=== PATIENT | male | born 1935 | race Caucasian/White ===

== ENCOUNTER 2021-07-16 21:14 | Observation (INO) ==
[2021-07-16 22:24] LABS: ABS Basophils 0.1 10^3/ul (0-0.2); ABS Eosinophils 0.1 10^3/ul (0-0.6); ABS Lymphocytes 1.2 10^3/ul (1.0-4.8); ABS Monocytes 0.7 10^3/ul (0-0.8); ABS Neutrophils 7.1 10^3/ul (1.5-7.7); Eosinophil % 1.3 %; Hematocrit 23 % (42-52); Hemoglobin 7.9 g/dL (14.0-18.0); Lymphocyte % 12.9 %; Mean Corpuscular HGB Conc 34 g/dL (31-36); Mean Corpuscular Hemoglobin 28 pg (27-31); Mean Corpuscular Volume 84 fL (80-94); Mean Platelet Volume 6.4 fL (7.4-10.4); Platelet Count 340 10^3/uL (150-450); Red Blood Count 2.79 10^6 /uL (4.18-5.48); Red Cell Distribution Width 17 % (10-15); White Blood Count 9.1 10^3/uL (3.5-10.8)
[2021-07-16 23:18] LABS: ALT 6 U/L (7-52); AST 8 U/L (13-39); Albumin 3.6 g/dL (3.2-5.2); Albumin/Globulin Ratio 1.4 (1-3); Alkaline Phosphatase 54 U/L (35-149); Anion Gap 9 mmol/L (2-11); Blood Urea Nitrogen 25 mg/dL (6-24); CO2 Carbon Dioxide 23 mmol/L (22-32); Calcium 9.6 mg/dL (8.6-10.3); Chloride 100 mmol/L (101-111); Globulin 2.5 g/dL (2-4); Glucose 219 mg/dL (70-100); Potassium 4.7 mmol/L (3.5-5.0); Sodium 132 mmol/L (135-145); Total Protein 6.1 g/dL (6.4-8.9); eGFR CKD-EPI 62.5 (>60)
[2021-07-16 23:54] LABS: Urine Appearance Cloudy; Urine Bilirubin Negative (Negative); Urine Blood Negative (Negative); Urine Color Yellow; Urine Glucose 2+(150 mg/dL) (Negative); Urine Ketones Trace (Negative); Urine Nitrite Negative (Negative); Urine Protein 2+(100 mg/dL) (Negative); Urine Specific Gravity 1.027 (1.002-1.030); Urine Urobilinogen Negative (Negative)
[2021-07-17 00:02] LABS: Urine Bacteria Absent (Absent); Urine Red Blood Cell 3+(>10/hpf) (Absent); Urine White Blood Cell 3+(>20/hpf) (Absent)
[2021-07-17] MEDS ORDERED: Dextrose 50% Syringe 50 ml 25 GM/50 ML SYRINGE IV PUSH PRN (02:11)
[2021-07-17] MEDS ORDERED: Albuterol/Ipratropium NEB.SOL (2.5/0.5 MG) 3 ML NEB.SOLN INH PRN (02:17)
[2021-07-17] MEDS ORDERED: Albuterol HFA INHALER 8 gm MDI INH PRN (02:17)
[2021-07-17] MEDS ORDERED: Iodixanol (CONTRAST) 320 MG/ML 100 ML SDV IV ONE (02:24)
[2021-07-17 03:05] LABS: LDH 143 U/L (140-271); Magnesium 1.4 mg/dL (1.9-2.7); Total Iron Binding Capacity 283 mcg/dL (250-450); Transferrin 202 mg/dL (203-362)
[2021-07-17 03:06] LABS: % Iron Saturation 7 % (15-55); Iron < 20 ug/dL (50-212); Unsaturated Iron Binding 263 ug/dL
[2021-07-17 03:28] LABS: Ferritin 45.4 ng/mL (24-336)
[2021-07-17 03:31] LABS: Folate 5.11 ng/mL (5.90-24.80)
[2021-07-17 03:32] LABS: Vitamin B12 298 pg/mL (180-914)
[2021-07-17 03:34] LABS: TSH Ultra Thyroid Stim Horm 0.45 mcIU/mL (0.34-5.60)
[2021-07-17] MEDS ORDERED: Magnesium Sulfate 2 gm BAG 2 GM/50 ML BAG IVPB ONE ×2 (03:41→09:30)
[2021-07-17 06:05] LABS: ABS Basophils 0.1 10^3/ul (0-0.2); ABS Eosinophils 0.3 10^3/ul (0-0.6); ABS Lymphocytes 1.3 10^3/ul (1.0-4.8); ABS Monocytes 0.7 10^3/ul (0-0.8); ABS Neutrophils 6.3 10^3/ul (1.5-7.7); Eosinophil % 3.3 %; Hematocrit 22 % (42-52); Hemoglobin 7.4 g/dL (14.0-18.0); Lymphocyte % 15.5 %; Mean Corpuscular HGB Conc 34 g/dL (31-36); Mean Corpuscular Hemoglobin 28 pg (27-31); Mean Corpuscular Volume 84 fL (80-94); Mean Platelet Volume 6.3 fL (7.4-10.4); Platelet Count 312 10^3/uL (150-450); Red Blood Count 2.62 10^6 /uL (4.18-5.48); Red Cell Distribution Width 17 % (10-15); White Blood Count 8.7 10^3/uL (3.5-10.8)
[2021-07-17 06:20] LABS: INR 1.1 (0.86-1.15)
[2021-07-17 06:47] LABS: Calcium 6.9 mg/dL (8.6-10.3); Potassium 3.2 mmol/L (3.5-5.0); eGFR CKD-EPI 86.2 (>60)
[2021-07-17] MEDS ORDERED: Potassium Chlor 20 meq TAB.ER PO ONE (08:12)
[2021-07-17 08:31] LABS: Magnesium 1.5 mg/dL (1.9-2.7)
[2021-07-17] MEDS ORDERED: NF:Fluticasone/Vilanterol MDI(NF) 100/25 MDI INH SCH (09:00)
[2021-07-17] MEDS: Insulin GLARGINE 100 un/ml 10 ml VIAL SUBCUT SCH (09:48)
[2021-07-17] MEDS: KCL 20 MEQ/100 ML IVPREMIX 20 MEQ/100 ML BAG IV SCH ×2 (13:16→16:04)
[2021-07-17] MEDS ORDERED: KCL 20 MEQ/100 ML IVPREMIX 20 MEQ/100 ML BAG IV ONE (16:00)
[2021-07-17 16:33] LABS: Hematocrit 31 % (42-52); Hemoglobin 10.3 g/dL (14.0-18.0)
[2021-07-17] MEDS: Mometasone/Formoter 100/5 MDI INH SCH (19:26)
[2021-07-17] MEDS: Iron Sucrose 200 MG in NS 0.9% 100 ml BAG 100 ML IVPB SCH (19:47)
[2021-07-18] MEDS ORDERED: Haloperidol 5 mg/ml SDV IV/IM 5 MG/ML AMP IM PRN (05:14)
[2021-07-18 05:25] LABS: ABS Basophils 0.1 10^3/ul (0-0.2); ABS Eosinophils 0.2 10^3/ul (0-0.6); ABS Monocytes 0.7 10^3/ul (0-0.8); Eosinophil % 1.8 %; Hematocrit 29 % (42-52); Hemoglobin 9.8 g/dL (14.0-18.0); Lymphocyte % 10.5 %; Mean Corpuscular HGB Conc 35 g/dL (31-36); Mean Corpuscular Hemoglobin 29 pg (27-31); Mean Corpuscular Volume 85 fL (80-94); Mean Platelet Volume 6.5 fL (7.4-10.4); Platelet Count 357 10^3/uL (150-450); Red Blood Count 3.36 10^6 /uL (4.18-5.48); Red Cell Distribution Width 16 % (10-15)
[2021-07-18] MEDS ORDERED: Haloperidol 5 mg/ml SDV IV/IM 5 MG/ML AMP IV SLOW PU ONE (05:31)
[2021-07-18 05:58] LABS: Calcium 8.8 mg/dL (8.6-10.3)
[2021-07-18 06:06] LABS: Potassium 5.3 mmol/L (3.5-5.0)
[2021-07-18] MEDS: Mometasone/Formoter 100/5 MDI INH SCH (07:45)
[2021-07-18] MEDS: Iron Sucrose 200 MG in NS 0.9% 100 ml BAG 100 ML IVPB SCH (08:47)
[2021-07-18] MEDS: Insulin GLARGINE 100 un/ml 10 ml VIAL SUBCUT SCH (08:48)
[2021-07-18 10:17] LABS: Calcium 8.8 mg/dL (8.6-10.3); Potassium 4.6 mmol/L (3.5-5.0)
[2021-07-18 10:22] LABS: eGFR CKD-EPI 62.5 (>60)
[2021-07-18] MEDS ORDERED: Amoxicillin/Clavul 500/125 TAB (Augmentin 500 mg tab) PO ONE (11:20)
[2021-07-18 12:11] LABS: Glucose Confirmatory 418 mg/dL (70-100)
[2021-07-18 15:11] VITALS: BP 102/42
[2021-07-19 15:01] LABS: Methylmalonic Acid 0.56 nmol/mL (<=0.40)
== END 2021-07-18 17:15 | disposition home or self-care (01) ==
LOC: ED 21:14 → EDHOLD 21:14 → SUATTDRO 07-17 02:03 → MED 07-17 13:56
PROVIDERS: ADMIT Student in an Organized Health Care Education/Training Program; ATTEND Internal Medicine

== ENCOUNTER 2021-07-20 14:28 | Inpatient (IN) ==
[2021-07-20] MEDS ORDERED: Lidocaine 2% JELLY 6 ML TOPICAL ONE ×2 (15:21→15:25)
[2021-07-20 16:21] LABS: Urine Appearance Cloudy; Urine Bilirubin Negative (Negative); Urine Blood 3+ (Negative); Urine Color Yellow; Urine Glucose 1+(50 mg/dL) (Negative); Urine Ketones Negative (Negative); Urine Nitrite Negative (Negative); Urine Protein 2+(100 mg/dL) (Negative); Urine Urobilinogen Negative (Negative)
[2021-07-20 16:25] LABS: Urine Bacteria Absent (Absent); Urine Red Blood Cell 3+(>10/hpf) (Absent); Urine White Blood Cell 3+(>20/hpf) (Absent)
[2021-07-20 17:26] LABS: Hematocrit 28 % (42-52); Hemoglobin 9.4 g/dL (14.0-18.0); Mean Corpuscular HGB Conc 34 g/dL (31-36); Mean Corpuscular Hemoglobin 29 pg (27-31); Mean Corpuscular Volume 86 fL (80-94); Mean Platelet Volume 6.7 fL (7.4-10.4); Platelet Count 350 10^3/uL (150-450); Red Blood Count 3.27 10^6 /uL (4.18-5.48); Red Cell Distribution Width 16 % (10-15); White Blood Count 15.2 10^3/uL (3.5-10.8)
[2021-07-20 17:30] LABS: ABS Eosinophils 0.1 10^3/ul (0-0.6); ABS Lymphocytes 1.1 10^3/ul (1.0-4.8); Eosinophil % 0.9 %
[2021-07-20 18:01] LABS: C Reactive Protein 90.15 mg/L (<8.01); Calcium 9.7 mg/dL (8.6-10.3); Potassium 4.7 mmol/L (3.5-5.0); eGFR CKD-EPI 51.6 (>60)
[2021-07-20] MEDS ORDERED: cefTRIAXone 1 gm/50 mL NS BAG 1 GM/50 ML BAG IV ONE (18:23)
[2021-07-20] MEDS ORDERED: Piperacillin/Tazobac ADVAN 3.375 GM in NS 0.9% 100 ml BAG 100 ML IV ONE (21:51)
[2021-07-20] MEDS ORDERED: NS 0.9% 1000 ml BAG 1,000 ML IV ONE (21:52)
[2021-07-20] MEDS ORDERED: Zosyn per Pharmacy NOTE FOLLOW UP SCH (22:00)
[2021-07-21] MEDS: ZOSYN 3.375 GM Q8H per EXTENDED INFUSION IV SCH ×3 (04:06→22:27)
[2021-07-21] MEDS ORDERED: Albuterol/Ipratropium NEB.SOL (2.5/0.5 MG) 3 ML NEB.SOLN INH PRN (05:53)
[2021-07-21] MEDS ORDERED: Albuterol HFA INHALER 8 gm MDI INH PRN (05:53)
[2021-07-21] MEDS ORDERED: Heparin 5000 UNITS/ML 1 mL VIAL SUBCUT SCH (06:00)
[2021-07-21] MEDS: Enoxaparin 30 MG/0.3 ML SYR SUBCUT SCH (06:17)
[2021-07-21 07:02] LABS: ABS Basophils 0.1 10^3/ul (0-0.2); ABS Eosinophils 0.2 10^3/ul (0-0.6); ABS Monocytes 0.9 10^3/ul (0-0.8); ABS Neutrophils 9.3 10^3/ul (1.5-7.7); Hematocrit 28 % (42-52); Hemoglobin 9.5 g/dL (14.0-18.0); Lymphocyte % 8.8 %; Mean Corpuscular HGB Conc 34 g/dL (31-36); Mean Corpuscular Hemoglobin 29 pg (27-31); Mean Corpuscular Volume 85 fL (80-94); Mean Platelet Volume 6.4 fL (7.4-10.4); Platelet Count 325 10^3/uL (150-450); Red Cell Distribution Width 16 % (10-15); White Blood Count 11.6 10^3/uL (3.5-10.8)
[2021-07-21 07:13] LABS: Activated Partial Thrombo Time 29.1 seconds (26.0-38.0); INR 1.1 (0.86-1.15)
[2021-07-21] MEDS: Mometasone/Formoter 100/5 MDI INH SCH ×2 (07:25→19:37)
[2021-07-21 08:00] LABS: Magnesium 1.5 mg/dL (1.9-2.7); Phosphorus 3.3 mg/dL (2.5-5.0)
[2021-07-21 08:01] LABS: Albumin 3.4 g/dL (3.2-5.2); Albumin/Globulin Ratio 1.3 (1-3); Globulin 2.7 g/dL (2-4); Potassium 4.2 mmol/L (3.5-5.0); Total Bilirubin 0.4 mg/dL (0.2-1.0); Total Protein 6.1 g/dL (6.4-8.9); eGFR CKD-EPI 70.4 (>60)
[2021-07-21] MEDS ORDERED: Magnesium Sulfate IV 3 GM in NS 0.9% 100 ml BAG 100 ML IVPB ONE (08:35)
[2021-07-21] MEDS ORDERED: Magnesium Sulfate 2 GM IV (Premix) IVPB ONE (09:00)
[2021-07-21] MEDS ORDERED: Insulin GLARGINE 100 un/ml 10 ml VIAL SUBCUT SCH (09:00)
[2021-07-21] MEDS ORDERED: Magnesium Sulfate 1 GM IV 1 GM/100 ML BAG IV ONE (10:00)
[2021-07-21] MEDS ORDERED: Dextrose 50% Syringe 50 ml 25 GM/50 ML SYRINGE IV PUSH PRN ×2 (13:02→14:29)
[2021-07-21] MEDS: Insulin GLARGINE 100 un/ml 10 ml VIAL SUBCUT SCH (22:37)
[2021-07-22] MEDS: ZOSYN 3.375 GM Q8H per EXTENDED INFUSION IV SCH ×3 (05:34→20:47)
[2021-07-22] MEDS: Enoxaparin 30 MG/0.3 ML SYR SUBCUT SCH (06:10)
[2021-07-22 06:53] LABS: ABS Eosinophils 0.2 10^3/ul (0-0.6); ABS Lymphocytes 0.9 10^3/ul (1.0-4.8); ABS Monocytes 0.6 10^3/ul (0-0.8); Eosinophil % 3.2 %; Hematocrit 25 % (42-52); Hemoglobin 8.5 g/dL (14.0-18.0); Lymphocyte % 12.9 %; Mean Corpuscular HGB Conc 35 g/dL (31-36); Mean Corpuscular Hemoglobin 29 pg (27-31); Mean Corpuscular Volume 84 fL (80-94); Mean Platelet Volume 6.7 fL (7.4-10.4); Platelet Count 292 10^3/uL (150-450); Red Blood Count 2.92 10^6 /uL (4.18-5.48); Red Cell Distribution Width 16 % (10-15); White Blood Count 6.7 10^3/uL (3.5-10.8)
[2021-07-22 07:10] LABS: Calcium 8.5 mg/dL (8.6-10.3); Magnesium 1.8 mg/dL (1.9-2.7); Potassium 4.4 mmol/L (3.5-5.0); eGFR CKD-EPI 66.6 (>60)
[2021-07-22] MEDS ORDERED: Magnesium Sulfate IV 1GM/100ML 1 GM/100 ML BAG IV ONE (07:17)
[2021-07-22] MEDS: Mometasone/Formoter 100/5 MDI INH SCH ×2 (08:15→20:21)
[2021-07-22] MEDS: Insulin GLARGINE 100 un/ml 10 ml VIAL SUBCUT SCH ×2 (08:26→20:55)
[2021-07-23] MEDS ORDERED: Polyethylene Glycol 3350 17 GM PACKET PO PRN (02:08)
[2021-07-23] MEDS: ZOSYN 3.375 GM Q8H per EXTENDED INFUSION IV SCH ×3 (05:04→22:11)
[2021-07-23] MEDS: Enoxaparin 30 MG/0.3 ML SYR SUBCUT SCH (05:10)
[2021-07-23 05:47] LABS: ABS Eosinophils 0.2 10^3/ul (0-0.6); ABS Lymphocytes 1.3 10^3/ul (1.0-4.8); ABS Monocytes 0.5 10^3/ul (0-0.8); Eosinophil % 3.3 %; Hematocrit 24 % (42-52); Hemoglobin 8.1 g/dL (14.0-18.0); Lymphocyte % 21.7 %; Mean Corpuscular HGB Conc 34 g/dL (31-36); Mean Corpuscular Hemoglobin 28 pg (27-31); Mean Corpuscular Volume 84 fL (80-94); Mean Platelet Volume 6.7 fL (7.4-10.4); Platelet Count 326 10^3/uL (150-450); Red Blood Count 2.86 10^6 /uL (4.18-5.48); Red Cell Distribution Width 16 % (10-15); White Blood Count 6.1 10^3/uL (3.5-10.8)
[2021-07-23 06:02] LABS: Calcium 8.4 mg/dL (8.6-10.3); Magnesium 1.7 mg/dL (1.9-2.7); Potassium 3.8 mmol/L (3.5-5.0)
[2021-07-23] MEDS ORDERED: Magnesium Sulfate 2 gm BAG 2 GM/50 ML BAG IVPB ONE (07:09)
[2021-07-23] MEDS: Mometasone/Formoter 100/5 MDI INH SCH ×2 (07:44→19:17)
[2021-07-23] MEDS: Insulin GLARGINE 100 un/ml 10 ml VIAL SUBCUT SCH ×2 (09:50→22:21)
[2021-07-23] MEDS: Senna TAB 8.6 mg TAB PO SCH (17:38)
[2021-07-23] MEDS: Polyethylene Glycol 3350 17 GM PACKET PO SCH (17:38)
[2021-07-24] MEDS: Enoxaparin 30 MG/0.3 ML SYR SUBCUT SCH ×2 (04:35→04:38)
[2021-07-24] MEDS: ZOSYN 3.375 GM Q8H per EXTENDED INFUSION IV SCH ×3 (04:36→21:25)
[2021-07-24 06:51] LABS: ABS Eosinophils 0.1 10^3/ul (0-0.6); ABS Lymphocytes 0.8 10^3/ul (1.0-4.8); ABS Monocytes 0.5 10^3/ul (0-0.8); ABS Neutrophils 3.8 10^3/ul (1.5-7.7); Eosinophil % 2.4 %; Hematocrit 27 % (42-52); Hemoglobin 9.1 g/dL (14.0-18.0); Lymphocyte % 14.5 %; Mean Corpuscular HGB Conc 34 g/dL (31-36); Mean Corpuscular Hemoglobin 29 pg (27-31); Mean Corpuscular Volume 85 fL (80-94); Mean Platelet Volume 6.5 fL (7.4-10.4); Platelet Count 362 10^3/uL (150-450); Red Blood Count 3.12 10^6 /uL (4.18-5.48); Red Cell Distribution Width 16 % (10-15); White Blood Count 5.2 10^3/uL (3.5-10.8)
[2021-07-24 07:19] LABS: Calcium 8.8 mg/dL (8.6-10.3); Magnesium 1.9 mg/dL (1.9-2.7); Potassium 3.8 mmol/L (3.5-5.0); eGFR CKD-EPI 67.3 (>60)
[2021-07-24] MEDS: Mometasone/Formoter 100/5 MDI INH SCH ×2 (08:01→19:24)
[2021-07-24] MEDS ORDERED: Potassium Chlor 20 meq TAB.ER PO ONE (08:48)
[2021-07-24] MEDS: Polyethylene Glycol 3350 17 GM PACKET PO SCH (09:00)
[2021-07-24] MEDS ORDERED: Aspirin EC 81 mg TAB.EC (enteric coated) PO SCH (09:00)
[2021-07-24] MEDS: Senna TAB 8.6 mg TAB PO SCH (09:00)
[2021-07-24] MEDS: Insulin GLARGINE 100 un/ml 10 ml VIAL SUBCUT SCH ×2 (09:00→21:34)
[2021-07-25] MEDS: Enoxaparin 30 MG/0.3 ML SYR SUBCUT SCH (05:05)
[2021-07-25] MEDS: ZOSYN 3.375 GM Q8H per EXTENDED INFUSION IV SCH ×2 (05:05→13:07)
[2021-07-25 06:04] LABS: ABS Eosinophils 0.1 10^3/ul (0-0.6); ABS Lymphocytes 0.9 10^3/ul (1.0-4.8); ABS Monocytes 0.5 10^3/ul (0-0.8); ABS Neutrophils 3.4 10^3/ul (1.5-7.7); Eosinophil % 2.5 %; Hematocrit 27 % (42-52); Hemoglobin 9.1 g/dL (14.0-18.0); Lymphocyte % 18.6 %; Mean Corpuscular HGB Conc 34 g/dL (31-36); Mean Corpuscular Hemoglobin 29 pg (27-31); Mean Corpuscular Volume 86 fL (80-94); Mean Platelet Volume 6.5 fL (7.4-10.4); Platelet Count 333 10^3/uL (150-450); Red Cell Distribution Width 16 % (10-15)
[2021-07-25] MEDS: Mometasone/Formoter 100/5 MDI INH SCH (07:50)
[2021-07-25 08:03] LABS: Calcium 8.7 mg/dL (8.6-10.3); Potassium 4.4 mmol/L (3.5-5.0); eGFR CKD-EPI 63.8 (>60)
[2021-07-25] MEDS: Polyethylene Glycol 3350 17 GM PACKET PO SCH (08:31)
[2021-07-25] MEDS: Senna TAB 8.6 mg TAB PO SCH (08:31)
[2021-07-25] MEDS: Insulin GLARGINE 100 un/ml 10 ml VIAL SUBCUT SCH (08:46)
[2021-07-25 15:18] VITALS: BP 118/59
== END 2021-07-25 17:15 | disposition home health service (06) | DRG 871 ==
LOC: ED 14:28 → EDHOLD 20:56 → SUATTDRO 20:56 → MED 22:45
PROVIDERS: ADMIT Student in an Organized Health Care Education/Training Program; ATTEND Internal Medicine

== ENCOUNTER 2021-07-26 17:22 | Observation (INO) ==
[2021-07-26] MEDS ORDERED: NS 0.9% 1000 ml BAG 1,000 ML IV ONE (18:24)
[2021-07-26 18:35] LABS: ABS Basophils 0.1 10^3/ul (0-0.2); ABS Eosinophils 0.2 10^3/ul (0-0.6); ABS Lymphocytes 1.2 10^3/ul (1.0-4.8); ABS Monocytes 0.7 10^3/ul (0-0.8); ABS Neutrophils 7.7 10^3/ul (1.5-7.7); Eosinophil % 2.3 %; Hematocrit 32 % (42-52); Hemoglobin 10.6 g/dL (14.0-18.0); Lymphocyte % 12.2 %; Mean Corpuscular HGB Conc 33 g/dL (31-36); Mean Corpuscular Hemoglobin 29 pg (27-31); Mean Corpuscular Volume 87 fL (80-94); Mean Platelet Volume 6.7 fL (7.4-10.4); Platelet Count 382 10^3/uL (150-450); Red Blood Count 3.69 10^6 /uL (4.18-5.48); Red Cell Distribution Width 16 % (10-15); White Blood Count 9.9 10^3/uL (3.5-10.8)
[2021-07-26 18:47] LABS: Activated Partial Thrombo Time 29.5 seconds (26.0-38.0); INR 0.96 (0.86-1.15)
[2021-07-26 18:51] LABS: Urine Appearance Turbid; Urine Bacteria Absent (Absent); Urine Bilirubin Negative (Negative); Urine Blood 3+ (Negative); Urine Color Amber; Urine Glucose Negative (Negative); Urine Ketones Trace (Negative); Urine Nitrite Negative (Negative); Urine Protein 2+(100 mg/dL) (Negative); Urine Red Blood Cell 3+(>10/hpf) (Absent); Urine Urobilinogen Negative (Negative); Urine White Blood Cell 1+(6-10/hpf) (Absent)
[2021-07-26 19:04] LABS: Albumin 4.2 g/dL (3.2-5.2); Albumin/Globulin Ratio 1.4 (1-3); C Reactive Protein 6.41 mg/L (<8.01); Calcium 9.3 mg/dL (8.6-10.3); Globulin 2.9 g/dL (2-4); Potassium 4.5 mmol/L (3.5-5.0); Total Bilirubin 0.2 mg/dL (0.2-1.0); Total Protein 7.1 g/dL (6.4-8.9); eGFR CKD-EPI 50.3 (>60)
[2021-07-26 20:04] LABS: High Sensitivity Troponin 1 Hr 6 pg/mL (<20)
[2021-07-26] MEDS ORDERED: Albuterol/Ipratropium NEB.SOL (2.5/0.5 MG) 3 ML NEB.SOLN INH PRN (22:00)
[2021-07-26] MEDS ORDERED: Albuterol HFA INHALER 8 gm MDI INH PRN (22:00)
[2021-07-27] MEDS ORDERED: Dextrose 50% Syringe 50 ml 25 GM/50 ML SYRINGE IV PUSH PRN (02:09)
[2021-07-27 03:11] LABS: INR 1.03 (0.86-1.15)
[2021-07-27] MEDS: Mometasone/Formoter 100/5 MDI INH SCH ×2 (07:56→20:16)
[2021-07-27] MEDS: Insulin GLARGINE 100 un/ml 10 ml VIAL SUBCUT SCH (09:31)
[2021-07-27] MEDS ORDERED: Lidocaine 2% JELLY 20 ML (for OR use) ONE (16:36)
[2021-07-27] MEDS ORDERED: cefTRIAXone 1 gm/50 mL NS BAG 1 GM/50 ML BAG IVPB SCH (21:00)
[2021-07-28 06:45] LABS: ABS Basophils 0.1 10^3/ul (0-0.2); ABS Eosinophils 0.2 10^3/ul (0-0.6); ABS Lymphocytes 1.4 10^3/ul (1.0-4.8); ABS Monocytes 0.7 10^3/ul (0-0.8); ABS Neutrophils 7.2 10^3/ul (1.5-7.7); Eosinophil % 2.1 %; Hematocrit 27 % (42-52); Hemoglobin 9.1 g/dL (14.0-18.0); INR 1.15 (0.86-1.15); Lymphocyte % 14.2 %; Mean Corpuscular HGB Conc 34 g/dL (31-36); Mean Corpuscular Hemoglobin 29 pg (27-31); Mean Corpuscular Volume 86 fL (80-94); Mean Platelet Volume 6.6 fL (7.4-10.4); Platelet Count 364 10^3/uL (150-450); Red Blood Count 3.14 10^6 /uL (4.18-5.48); Red Cell Distribution Width 16 % (10-15); White Blood Count 9.5 10^3/uL (3.5-10.8)
[2021-07-28 07:00] LABS: Magnesium 1.4 mg/dL (1.9-2.7); Phosphorus 3.1 mg/dL (2.5-5.0); Potassium 4.4 mmol/L (3.5-5.0); eGFR CKD-EPI 68.9 (>60)
[2021-07-28] MEDS ORDERED: Magnesium Sulfate IV 3 GM in NS 0.9% 100 ml BAG 100 ML IVPB ONE (07:22)
[2021-07-28] MEDS: Mometasone/Formoter 100/5 MDI INH SCH (07:27)
[2021-07-28] MEDS ORDERED: Magnesium Sulfate 2 GM IV (Premix) IVPB ONE (08:00)
[2021-07-28] MEDS: Insulin GLARGINE 100 un/ml 10 ml VIAL SUBCUT SCH (08:13)
[2021-07-28] MEDS ORDERED: Magnesium Sulfate 1 GM IV 1 GM/100 ML BAG IV ONE (09:00)
[2021-07-28 10:55] VITALS: BP 96/42
== END 2021-07-28 13:20 | disposition home or self-care (01) ==
LOC: EDHOLD 17:22 → ED 17:22 → SUATTDRO 22:50 → MED 07-27 00:51
PROVIDERS: ADMIT Student in an Organized Health Care Education/Training Program; ATTEND Internal Medicine

== ENCOUNTER 2021-08-05 09:10 | Inpatient (IN) ==
[2021-08-05] MEDS ORDERED: NS 0.9% 1000 ml BAG 1,000 ML IV ONE (10:03)
[2021-08-05 10:50] LABS: ABS Basophils 0.1 10^3/ul (0-0.2); ABS Eosinophils 0.2 10^3/ul (0-0.6); ABS Lymphocytes 1.2 10^3/ul (1.0-4.8); ABS Monocytes 0.7 10^3/ul (0-0.8); Eosinophil % 2.5 %; Hematocrit 28 % (42-52); Hemoglobin 9.5 g/dL (14.0-18.0); Lymphocyte % 12.8 %; Mean Corpuscular HGB Conc 34 g/dL (31-36); Mean Corpuscular Hemoglobin 29 pg (27-31); Mean Corpuscular Volume 87 fL (80-94); Mean Platelet Volume 6.5 fL (7.4-10.4); Nucleated Red Blood Cells % 0.1; Platelet Count 340 10^3/uL (150-450); Red Blood Count 3.26 10^6 /uL (4.18-5.48); Red Cell Distribution Width 17 % (10-15); White Blood Count 9.2 10^3/uL (3.5-10.8)
[2021-08-05 11:23] LABS: Urine Appearance Cloudy; Urine Bilirubin Negative (Negative); Urine Blood 3+ (Negative); Urine Color Straw; Urine Glucose 2+(150 mg/dL) (Negative); Urine Ketones Negative (Negative); Urine Nitrite Negative (Negative); Urine Protein 1+(30 mg/dL) (Negative); Urine Urobilinogen Negative (Negative)
[2021-08-05 11:26] LABS: Urine Bacteria Absent (Absent); Urine Red Blood Cell 3+(>10/hpf) (Absent); Urine Squamous Epithelial Cell Present (Absent); Urine White Blood Cell 3+(>20/hpf) (Absent)
[2021-08-05 11:31] LABS: ALT 12 U/L (7-52); Albumin 4.1 g/dL (3.2-5.2); Albumin/Globulin Ratio 1.5 (1-3); Alkaline Phosphatase 46 U/L (35-149); Blood Urea Nitrogen 40 mg/dL (6-24); CO2 Carbon Dioxide 23 mmol/L (22-32); Calcium 9.8 mg/dL (8.6-10.3); Chloride 100 mmol/L (101-111); Globulin 2.7 g/dL (2-4); Glucose 209 mg/dL (70-100); Magnesium 1.5 mg/dL (1.9-2.7); Sodium 133 mmol/L (135-145); Total Protein 6.8 g/dL (6.4-8.9); eGFR CKD-EPI 57.7 (>60)
[2021-08-05] MEDS ORDERED: cefTRIAXone 1 gm/50 mL D5W 1 GM/50 ML BAG IV ONE (11:42)
[2021-08-05 11:45] LABS: Urine Benzodiazepine Screen None Detected (None Detect); Urine Cannabinoids Screen None Detected (None Detect); Urine Opiates Screen None Detected (None Detect)
[2021-08-05 12:40] LABS: Acetaminophen < 15 mcg/mL; Alcohol, S < 13 mg/dL (<13); Salicylate < 2.50 mg/dL (<30)
[2021-08-05 12:42] LABS: Anion Gap 10 mmol/L (2-11)
[2021-08-05] MEDS ORDERED: Albuterol HFA INHALER 8 gm MDI INH PRN (14:28)
[2021-08-05] MEDS ORDERED: Magnesium Sulfate IV 3 GM in NS 0.9% 100 ml BAG 100 ML IVPB ONE (14:57)
[2021-08-05] MEDS ORDERED: Calcium Carb (TUMS) 500 mg CHEW TAB PO ONE (15:04)
[2021-08-05] MEDS ORDERED: Dextrose 50% Syringe 50 ml 25 GM/50 ML SYRINGE IV PUSH PRN (15:10)
[2021-08-05 15:35] LABS: C Reactive Protein 1.27 mg/L (<8.01)
[2021-08-05] MEDS ORDERED: Magnesium Sulfate 2 GM IV (Premix) IVPB ONE (18:00)
[2021-08-05] MEDS ORDERED: Magnesium Sulfate 1 GM IV 1 GM/100 ML BAG IV ONE (18:00)
[2021-08-05 20:04] LABS: Potassium Redraw 4.3 mmol/L (3.5-5.0)
[2021-08-05] MEDS: Heparin 5000 UNITS/ML 1 mL VIAL SUBCUT SCH ×2 (21:06→22:00)
[2021-08-05] MEDS: Metoprolol Tartrate 5 mg VIAL 5 ml VIAL (1 mg/ml) IV PRN (21:21)
[2021-08-05] MEDS ORDERED: Calcium Carb (TUMS) 500 mg CHEW TAB PO PRN (22:43)
[2021-08-06] MEDS: Heparin 5000 UNITS/ML 1 mL VIAL SUBCUT SCH ×3 (05:02→20:57)
[2021-08-06] MEDS: Mometasone/Formoter 100/5 MDI INH SCH ×2 (08:06→19:57)
[2021-08-06] MEDS: Insulin GLARGINE 100 un/ml 10 ml VIAL SUBCUT SCH (08:16)
[2021-08-06 09:46] LABS: ABS Basophils 0.1 10^3/ul (0-0.2); ABS Eosinophils 0.1 10^3/ul (0-0.6); ABS Lymphocytes 0.6 10^3/ul (1.0-4.8); ABS Monocytes 0.5 10^3/ul (0-0.8); ABS Neutrophils 6.2 10^3/ul (1.5-7.7); Eosinophil % 1.7 %; Hematocrit 27 % (42-52); Hemoglobin 9.1 g/dL (14.0-18.0); Lymphocyte % 8.6 %; Mean Corpuscular HGB Conc 34 g/dL (31-36); Mean Corpuscular Hemoglobin 30 pg (27-31); Mean Corpuscular Volume 87 fL (80-94); Mean Platelet Volume 6.5 fL (7.4-10.4); Platelet Count 295 10^3/uL (150-450); Red Blood Count 3.07 10^6 /uL (4.18-5.48); Red Cell Distribution Width 18 % (10-15); White Blood Count 7.6 10^3/uL (3.5-10.8)
[2021-08-06 10:29] LABS: Potassium 4.5 mmol/L (3.5-5.0); eGFR CKD-EPI 58.8 (>60)
[2021-08-06] MEDS ORDERED: Haloperidol 5 mg/ml SDV IV/IM 5 MG/ML AMP IV SLOW PU PRN (13:07)
[2021-08-06] MEDS: Metoprolol Tartrate 5 mg VIAL 5 ml VIAL (1 mg/ml) IV PRN (17:57)
[2021-08-06 18:43] LABS: Magnesium 1.9 mg/dL (1.9-2.7)
[2021-08-07 05:32] LABS: ABS Eosinophils 0.2 10^3/ul (0-0.6); ABS Lymphocytes 0.8 10^3/ul (1.0-4.8); ABS Monocytes 0.7 10^3/ul (0-0.8); Eosinophil % 2.2 %; Hematocrit 25 % (42-52); Hemoglobin 8.4 g/dL (14.0-18.0); Lymphocyte % 10.9 %; Mean Corpuscular HGB Conc 34 g/dL (31-36); Mean Corpuscular Hemoglobin 30 pg (27-31); Mean Corpuscular Volume 86 fL (80-94); Mean Platelet Volume 6.2 fL (7.4-10.4); Platelet Count 269 10^3/uL (150-450); Red Blood Count 2.85 10^6 /uL (4.18-5.48); Red Cell Distribution Width 18 % (10-15); White Blood Count 7.7 10^3/uL (3.5-10.8)
[2021-08-07 06:15] LABS: Calcium 8.4 mg/dL (8.6-10.3); Magnesium 1.7 mg/dL (1.9-2.7); Potassium 4.4 mmol/L (3.5-5.0); eGFR CKD-EPI 57.1 (>60)
[2021-08-07] MEDS: Heparin 5000 UNITS/ML 1 mL VIAL SUBCUT SCH ×3 (06:38→23:58)
[2021-08-07] MEDS: Mometasone/Formoter 100/5 MDI INH SCH (07:07)
[2021-08-07] MEDS: Insulin GLARGINE 100 un/ml 10 ml VIAL SUBCUT SCH (09:59)
[2021-08-07] MEDS: Linezolid 600 MG IVPREMIX(*) 600 MG/300 ML BAG IVPB SCH (14:15)
[2021-08-07] MEDS ORDERED: Haloperidol 5 mg/ml SDV IV/IM 5 MG/ML AMP IV SLOW PU PRN (15:56)
[2021-08-07] MEDS ORDERED: Insulin GLARGINE 100 un/ml 10 ml VIAL SUBCUT ONE (16:35)
[2021-08-07] MEDS ORDERED: Lactated Ringers 1000 ml BAG 1,000 ML IV ONE (19:50)
[2021-08-08] MEDS: Mometasone/Formoter 100/5 MDI INH SCH ×3 (02:08→19:24)
[2021-08-08] MEDS: Linezolid 600 MG IVPREMIX(*) 600 MG/300 ML BAG IVPB SCH ×2 (02:08→13:34)
[2021-08-08] MEDS: Heparin 5000 UNITS/ML 1 mL VIAL SUBCUT SCH ×2 (06:04→13:38)
[2021-08-08] MEDS ORDERED: COVID-19 VACCINE, MRNA(MODERNA)/PF 100 MCG/0.5 ML IM ONE (09:00)
[2021-08-08] MEDS: Insulin GLARGINE 100 un/ml 10 ml VIAL SUBCUT SCH (09:18)
[2021-08-08] MEDS ORDERED: Haloperidol 5 mg/ml SDV IV/IM 5 MG/ML AMP IV SLOW PU PRN (14:08)
[2021-08-08] MEDS: Collagenase 250 units/gm OINT 1 tube TOPICAL SCH (17:47)
[2021-08-09] MEDS: Heparin 5000 UNITS/ML 1 mL VIAL SUBCUT SCH ×4 (00:01→21:10)
[2021-08-09] MEDS: Linezolid 600 MG IVPREMIX(*) 600 MG/300 ML BAG IVPB SCH (02:08)
[2021-08-09 07:54] LABS: ABS Eosinophils 0.1 10^3/ul (0-0.6); ABS Lymphocytes 0.8 10^3/ul (1.0-4.8); ABS Monocytes 0.4 10^3/ul (0-0.8); ABS Neutrophils 3.8 10^3/ul (1.5-7.7); Eosinophil % 2.2 %; Hematocrit 28 % (42-52); Hemoglobin 9.4 g/dL (14.0-18.0); Lymphocyte % 15.1 %; Mean Corpuscular HGB Conc 34 g/dL (31-36); Mean Corpuscular Hemoglobin 29 pg (27-31); Mean Corpuscular Volume 88 fL (80-94); Mean Platelet Volume 6.4 fL (7.4-10.4); Nucleated Red Blood Cells % 0.1; Platelet Count 279 10^3/uL (150-450); Red Cell Distribution Width 17 % (10-15); White Blood Count 5.2 10^3/uL (3.5-10.8)
[2021-08-09] MEDS: Insulin GLARGINE 100 un/ml 10 ml VIAL SUBCUT SCH (08:32)
[2021-08-09 08:42] LABS: Calcium 9.1 mg/dL (8.6-10.3); Magnesium 1.8 mg/dL (1.9-2.7); Potassium 4.6 mmol/L (3.5-5.0); eGFR CKD-EPI 65.9 (>60)
[2021-08-09] MEDS: Mometasone/Formoter 100/5 MDI INH SCH ×2 (08:55→19:51)
[2021-08-09] MEDS: Collagenase 250 units/gm OINT 1 tube TOPICAL SCH (11:22)
[2021-08-09] MEDS ORDERED: NS 0.9% 1000 ml BAG 1,000 ML IV SCH (13:45)
[2021-08-09] MEDS ORDERED: Insulin GLARGINE 100 un/ml 10 ml VIAL SUBCUT ONE (13:50)
[2021-08-10] MEDS: Heparin 5000 UNITS/ML 1 mL VIAL SUBCUT SCH ×3 (06:16→21:17)
[2021-08-10 06:25] LABS: Calcium 8.4 mg/dL (8.6-10.3); Magnesium 1.8 mg/dL (1.9-2.7); Potassium 4.1 mmol/L (3.5-5.0); eGFR CKD-EPI 58.8 (>60)
[2021-08-10] MEDS: Mometasone/Formoter 100/5 MDI INH SCH ×2 (07:42→20:02)
[2021-08-10] MEDS ORDERED: Insulin GLARGINE 100 un/ml 10 ml VIAL SUBCUT SCH (09:00)
[2021-08-10] MEDS: Collagenase 250 units/gm OINT 1 tube TOPICAL SCH (11:48)
[2021-08-10] MEDS ORDERED: COVID-19 VACCINE, MRNA(MODERNA)/PF 100 MCG/0.5 ML IM ONE (17:00)
[2021-08-11 05:06] LABS: ABS Eosinophils 0.2 10^3/ul (0-0.6); ABS Monocytes 0.8 10^3/ul (0-0.8); ABS Neutrophils 6.7 10^3/ul (1.5-7.7); Eosinophil % 2.2 %; Hematocrit 25 % (42-52); Hemoglobin 8.5 g/dL (14.0-18.0); Lymphocyte % 11.8 %; Mean Corpuscular HGB Conc 34 g/dL (31-36); Mean Corpuscular Hemoglobin 30 pg (27-31); Mean Corpuscular Volume 88 fL (80-94); Mean Platelet Volume 6.6 fL (7.4-10.4); Platelet Count 261 10^3/uL (150-450); Red Blood Count 2.85 10^6 /uL (4.18-5.48); Red Cell Distribution Width 18 % (10-15); White Blood Count 8.8 10^3/uL (3.5-10.8)
[2021-08-11] MEDS: Heparin 5000 UNITS/ML 1 mL VIAL SUBCUT SCH ×3 (05:36→21:07)
[2021-08-11 05:43] LABS: Calcium 8.7 mg/dL (8.6-10.3); Potassium 3.9 mmol/L (3.5-5.0); eGFR CKD-EPI 64.5 (>60)
[2021-08-11] MEDS: Insulin GLARGINE 100 un/ml 10 ml VIAL SUBCUT SCH (07:51)
[2021-08-11] MEDS: SITAGLIPTIN 25 MG PO SCH (07:53)
[2021-08-11] MEDS: Mometasone/Formoter 100/5 MDI INH SCH ×2 (07:54→19:45)
[2021-08-11] MEDS: Collagenase 250 units/gm OINT 1 tube TOPICAL SCH (10:26)
[2021-08-12] MEDS: Heparin 5000 UNITS/ML 1 mL VIAL SUBCUT SCH ×3 (05:38→20:21)
[2021-08-12] MEDS: Mometasone/Formoter 100/5 MDI INH SCH ×2 (07:00→19:02)
[2021-08-12] MEDS: Insulin GLARGINE 100 un/ml 10 ml VIAL SUBCUT SCH (11:35)
[2021-08-12] MEDS: Collagenase 250 units/gm OINT 1 tube TOPICAL SCH (14:56)
[2021-08-12] MEDS: SITAGLIPTIN 25 MG PO SCH (14:56)
[2021-08-13] MEDS: Heparin 5000 UNITS/ML 1 mL VIAL SUBCUT SCH ×3 (05:20→20:37)
[2021-08-13 06:25] LABS: ABS Eosinophils 0.2 10^3/ul (0-0.6); ABS Monocytes 0.7 10^3/ul (0-0.8); ABS Neutrophils 2.5 10^3/ul (1.5-7.7); Eosinophil % 3.6 %; Hematocrit 25 % (42-52); Hemoglobin 8.4 g/dL (14.0-18.0); Lymphocyte % 22.3 %; Mean Corpuscular HGB Conc 34 g/dL (31-36); Mean Corpuscular Hemoglobin 30 pg (27-31); Mean Corpuscular Volume 88 fL (80-94); Mean Platelet Volume 6.7 fL (7.4-10.4); Platelet Count 190 10^3/uL (150-450); Red Cell Distribution Width 18 % (10-15); White Blood Count 4.4 10^3/uL (3.5-10.8)
[2021-08-13 06:55] LABS: Calcium 8.6 mg/dL (8.6-10.3); Potassium 4.6 mmol/L (3.5-5.0)
[2021-08-13] MEDS: Insulin GLARGINE 100 un/ml 10 ml VIAL SUBCUT SCH (08:11)
[2021-08-13] MEDS: Mometasone/Formoter 100/5 MDI INH SCH ×2 (08:22→22:47)
[2021-08-13] MEDS ORDERED: NS 0.9% 500 ml BAG 500 ML IV SCH (09:00)
[2021-08-13] MEDS: Collagenase 250 units/gm OINT 1 tube TOPICAL SCH (10:08)
[2021-08-13] MEDS: SITAGLIPTIN 25 MG PO SCH (12:29)
[2021-08-14 05:06] LABS: ABS Eosinophils 0.2 10^3/ul (0-0.6); ABS Lymphocytes 0.8 10^3/ul (1.0-4.8); ABS Monocytes 0.5 10^3/ul (0-0.8); ABS Neutrophils 2.2 10^3/ul (1.5-7.7); Eosinophil % 4.7 %; Hematocrit 23 % (42-52); Hemoglobin 7.7 g/dL (14.0-18.0); Lymphocyte % 21.7 %; Mean Corpuscular HGB Conc 34 g/dL (31-36); Mean Corpuscular Hemoglobin 30 pg (27-31); Mean Corpuscular Volume 88 fL (80-94); Mean Platelet Volume 6.7 fL (7.4-10.4); Platelet Count 185 10^3/uL (150-450); Red Blood Count 2.57 10^6 /uL (4.18-5.48); Red Cell Distribution Width 18 % (10-15); White Blood Count 3.7 10^3/uL (3.5-10.8)
[2021-08-14] MEDS: Heparin 5000 UNITS/ML 1 mL VIAL SUBCUT SCH ×4 (05:23→21:33)
[2021-08-14 05:31] LABS: Calcium 8.6 mg/dL (8.6-10.3); Potassium 4.4 mmol/L (3.5-5.0); eGFR CKD-EPI 45.9 (>60)
[2021-08-14] MEDS: Mometasone/Formoter 100/5 MDI INH SCH ×2 (07:51→19:10)
[2021-08-14] MEDS: Insulin GLARGINE 100 un/ml 10 ml VIAL SUBCUT SCH (08:28)
[2021-08-14] MEDS: SITAGLIPTIN 25 MG PO SCH (08:30)
[2021-08-14] MEDS: Collagenase 250 units/gm OINT 1 tube TOPICAL SCH (12:22)
[2021-08-14 18:03] LABS: ABS Eosinophils 0.1 10^3/ul (0-0.6); ABS Lymphocytes 0.8 10^3/ul (1.0-4.8); ABS Monocytes 0.5 10^3/ul (0-0.8); ABS Neutrophils 2.5 10^3/ul (1.5-7.7); Eosinophil % 2.8 %; Hematocrit 24 % (42-52); Lymphocyte % 21.4 %; Mean Corpuscular HGB Conc 34 g/dL (31-36); Mean Corpuscular Hemoglobin 30 pg (27-31); Mean Corpuscular Volume 89 fL (80-94); Mean Platelet Volume 6.6 fL (7.4-10.4); Nucleated Red Blood Cells % 0.1; Platelet Count 211 10^3/uL (150-450); Red Blood Count 2.66 10^6 /uL (4.18-5.48); Red Cell Distribution Width 18 % (10-15); White Blood Count 3.9 10^3/uL (3.5-10.8)
[2021-08-14 18:39] LABS: Folate 17.48 ng/mL (5.90-24.80)
[2021-08-14 18:41] LABS: Calcium 8.3 mg/dL (8.6-10.3); eGFR CKD-EPI 40.7 (>60)
[2021-08-14 18:43] LABS: Potassium 5.2 mmol/L (3.5-5.0)
[2021-08-14] MEDS ORDERED: Dextrose 50% Syringe 50 ml 25 GM/50 ML SYRINGE IV PUSH PRN (19:44)
[2021-08-14] MEDS: Iron Sucrose 200 MG in NS 0.9% 100 ml BAG 100 ML IVPB SCH (21:18)
[2021-08-15 05:49] LABS: ABS Eosinophils 0.2 10^3/ul (0-0.6); ABS Lymphocytes 0.9 10^3/ul (1.0-4.8); ABS Monocytes 0.5 10^3/ul (0-0.8); ABS Neutrophils 2.6 10^3/ul (1.5-7.7); Eosinophil % 4.4 %; Hematocrit 23 % (42-52); Hemoglobin 7.7 g/dL (14.0-18.0); Lymphocyte % 20.4 %; Mean Corpuscular HGB Conc 34 g/dL (31-36); Mean Corpuscular Hemoglobin 30 pg (27-31); Mean Corpuscular Volume 89 fL (80-94); Mean Platelet Volume 6.6 fL (7.4-10.4); Platelet Count 199 10^3/uL (150-450); Red Blood Count 2.58 10^6 /uL (4.18-5.48); Red Cell Distribution Width 18 % (10-15); White Blood Count 4.3 10^3/uL (3.5-10.8)
[2021-08-15] MEDS: Heparin 5000 UNITS/ML 1 mL VIAL SUBCUT SCH (06:30)
[2021-08-15 06:36] LABS: Calcium 8.7 mg/dL (8.6-10.3); Potassium 4.7 mmol/L (3.5-5.0)
[2021-08-15 06:42] LABS: eGFR CKD-EPI 45.5 (>60)
[2021-08-15] MEDS: Mometasone/Formoter 100/5 MDI INH SCH (07:32)
[2021-08-15 08:30] VITALS: BP 120/48
[2021-08-15] MEDS: SITAGLIPTIN 25 MG PO SCH (10:07)
[2021-08-15] MEDS: Insulin GLARGINE 100 un/ml 10 ml VIAL SUBCUT SCH (10:08)
[2021-08-15] MEDS: Iron Sucrose 200 MG in NS 0.9% 100 ml BAG 100 ML IVPB SCH (10:10)
== END 2021-08-15 09:26 | disposition swing bed (61) | DRG 884 ==
LOC: ED 09:10 → EDHOLD 09:10 → MED 16:25 → SUATTDRO 08-07 11:30
PROVIDERS: ADMIT Nurse Practitioner Family; ATTEND Internal Medicine

== ENCOUNTER 2021-08-15 09:56 | Inpatient (IN) ==
[2021-08-15] MEDS ORDERED: Dextrose 50% Syringe 50 ml 25 GM/50 ML SYRINGE IV PUSH PRN (12:54)
[2021-08-15] MEDS ORDERED: Calcium Carb (TUMS) 500 mg CHEW TAB PO PRN (12:55)
[2021-08-15] MEDS ORDERED: Albuterol HFA INHALER 8 gm MDI INH PRN (12:58)
[2021-08-15] MEDS: Mometasone/Formoter 100/5 MDI INH SCH (19:11)
[2021-08-15] MEDS: Enoxaparin 30 MG/0.3 ML SYR SUBCUT SCH (21:28)
[2021-08-16] MEDS: Mometasone/Formoter 100/5 MDI INH SCH ×2 (07:05→19:49)
[2021-08-16] MEDS: Insulin GLARGINE 100 un/ml 10 ml VIAL SUBCUT SCH ×2 (08:23→08:54)
[2021-08-16] MEDS ORDERED: Aspirin EC 81 mg TAB.EC (enteric coated) PO SCH (09:00)
[2021-08-16] MEDS: Iron Sucrose 200 MG in NS 0.9% 100 ml BAG 100 ML IVPB SCH (09:38)
[2021-08-16] MEDS ORDERED: Senna TAB 8.6 mg TAB PO PRN (09:47)
[2021-08-16] MEDS: Polyethylene Glycol 3350 17 GM PACKET PO SCH (10:07)
[2021-08-16] MEDS: Enoxaparin 30 MG/0.3 ML SYR SUBCUT SCH (20:04)
[2021-08-17] MEDS: Mometasone/Formoter 100/5 MDI INH SCH ×2 (07:36→19:17)
[2021-08-17] MEDS: Insulin GLARGINE 100 un/ml 10 ml VIAL SUBCUT SCH (08:51)
[2021-08-17] MEDS: Polyethylene Glycol 3350 17 GM PACKET PO SCH (08:54)
[2021-08-17] MEDS: Iron Sucrose 200 MG in NS 0.9% 100 ml BAG 100 ML IVPB SCH (09:00)
[2021-08-17] MEDS: Enoxaparin 30 MG/0.3 ML SYR SUBCUT SCH (21:01)
[2021-08-18] MEDS: Mometasone/Formoter 100/5 MDI INH SCH ×2 (08:03→20:28)
[2021-08-18] MEDS: Polyethylene Glycol 3350 17 GM PACKET PO SCH (08:28)
[2021-08-18] MEDS: Iron Sucrose 200 MG in NS 0.9% 100 ml BAG 100 ML IVPB SCH (09:26)
[2021-08-18] MEDS: Insulin GLARGINE 100 un/ml 10 ml VIAL SUBCUT SCH (09:27)
[2021-08-18] MEDS: Enoxaparin 30 MG/0.3 ML SYR SUBCUT SCH (22:25)
[2021-08-19] MEDS: Mometasone/Formoter 100/5 MDI INH SCH ×2 (07:50→19:40)
[2021-08-19] MEDS: Insulin GLARGINE 100 un/ml 10 ml VIAL SUBCUT SCH (08:13)
[2021-08-19] MEDS: Polyethylene Glycol 3350 17 GM PACKET PO SCH (08:15)
[2021-08-19] MEDS: Enoxaparin 30 MG/0.3 ML SYR SUBCUT SCH (21:00)
[2021-08-20] MEDS: Mometasone/Formoter 100/5 MDI INH SCH ×2 (07:23→19:36)
[2021-08-20] MEDS: Insulin GLARGINE 100 un/ml 10 ml VIAL SUBCUT SCH (08:49)
[2021-08-20] MEDS: Polyethylene Glycol 3350 17 GM PACKET PO SCH (08:49)
[2021-08-20] MEDS: Enoxaparin 30 MG/0.3 ML SYR SUBCUT SCH (19:53)
[2021-08-21] MEDS: Polyethylene Glycol 3350 17 GM PACKET PO SCH (08:15)
[2021-08-21] MEDS: Insulin GLARGINE 100 un/ml 10 ml VIAL SUBCUT SCH (08:15)
[2021-08-21] MEDS: Mometasone/Formoter 100/5 MDI INH SCH ×2 (08:45→20:27)
[2021-08-21] MEDS: Enoxaparin 30 MG/0.3 ML SYR SUBCUT SCH (19:19)
[2021-08-22] MEDS: Mometasone/Formoter 100/5 MDI INH SCH ×2 (07:09→19:29)
[2021-08-22] MEDS: Polyethylene Glycol 3350 17 GM PACKET PO SCH (08:50)
[2021-08-22] MEDS: Insulin GLARGINE 100 un/ml 10 ml VIAL SUBCUT SCH (08:51)
[2021-08-22] MEDS: Enoxaparin 30 MG/0.3 ML SYR SUBCUT SCH (20:32)
[2021-08-22 20:34] VITALS: BP 102/54
[2021-08-23 06:51] LABS: ABS Eosinophils 0.2 10^3/ul (0-0.6); ABS Lymphocytes 1.1 10^3/ul (1.0-4.8); Eosinophil % 1.8 %; Hematocrit 24 % (42-52); Hemoglobin 8.3 g/dL (14.0-18.0); Lymphocyte % 11.4 %; Mean Corpuscular HGB Conc 35 g/dL (31-36); Mean Corpuscular Hemoglobin 31 pg (27-31); Mean Corpuscular Volume 90 fL (80-94); Mean Platelet Volume 6.5 fL (7.4-10.4); Platelet Count 280 10^3/uL (150-450); Red Blood Count 2.66 10^6 /uL (4.18-5.48); Red Cell Distribution Width 18 % (10-15); White Blood Count 9.3 10^3/uL (3.5-10.8)
[2021-08-23] MEDS: Mometasone/Formoter 100/5 MDI INH SCH (08:12)
[2021-08-23] MEDS: Polyethylene Glycol 3350 17 GM PACKET PO SCH (09:46)
[2021-08-23] MEDS: Insulin GLARGINE 100 un/ml 10 ml VIAL SUBCUT SCH (09:47)
== END 2021-08-23 15:28 | disposition short-term general hospital (02) | DRG 884 ==
LOC: SUATTDRO 09:56 → MED 09:56
PROVIDERS: ADMIT Internal Medicine; ATTEND Hospitalist

== ENCOUNTER 2021-08-23 16:16 | Inpatient (IN) ==
[2021-08-23] MEDS ORDERED: Dextrose 50% Syringe 50 ml 25 GM/50 ML SYRINGE IV PUSH PRN ×2 (17:23)
[2021-08-23] MEDS ORDERED: Calcium Carb (TUMS) 500 mg CHEW TAB PO PRN (17:29)
[2021-08-23] MEDS ORDERED: Albuterol HFA INHALER 8 gm MDI INH PRN (17:29)
[2021-08-23] MEDS: Mometasone/Formoter 100/5 MDI INH SCH (20:08)
[2021-08-23] MEDS: Enoxaparin 40 MG/0.4 ML SYR SUBCUT SCH (22:25)
[2021-08-24] MEDS: Mometasone/Formoter 100/5 MDI INH SCH ×2 (06:46→19:47)
[2021-08-24] MEDS: Polyethylene Glycol 3350 17 GM PACKET PO SCH (10:00)
[2021-08-24] MEDS: Insulin GLARGINE 100 un/ml 10 ml VIAL SUBCUT SCH (10:00)
[2021-08-24] MEDS: Enoxaparin 40 MG/0.4 ML SYR SUBCUT SCH (18:22)
[2021-08-25] MEDS: Mometasone/Formoter 100/5 MDI INH SCH ×2 (06:47→19:45)
[2021-08-25] MEDS: Insulin GLARGINE 100 un/ml 10 ml VIAL SUBCUT SCH (09:17)
[2021-08-25] MEDS: Polyethylene Glycol 3350 17 GM PACKET PO SCH (09:17)
[2021-08-25] MEDS: Enoxaparin 40 MG/0.4 ML SYR SUBCUT SCH (17:02)
[2021-08-26] MEDS: Mometasone/Formoter 100/5 MDI INH SCH ×2 (06:51→18:54)
[2021-08-26] MEDS: Polyethylene Glycol 3350 17 GM PACKET PO SCH (07:56)
[2021-08-26] MEDS: Insulin GLARGINE 100 un/ml 10 ml VIAL SUBCUT SCH (08:06)
[2021-08-26] MEDS: Enoxaparin 40 MG/0.4 ML SYR SUBCUT SCH (17:25)
[2021-08-27] MEDS: Mometasone/Formoter 100/5 MDI INH SCH ×2 (07:24→20:33)
[2021-08-27] MEDS: Polyethylene Glycol 3350 17 GM PACKET PO SCH (08:05)
[2021-08-27] MEDS: Insulin GLARGINE 100 un/ml 10 ml VIAL SUBCUT SCH (09:01)
[2021-08-27] MEDS: Enoxaparin 40 MG/0.4 ML SYR SUBCUT SCH (18:12)
[2021-08-28] MEDS: Mometasone/Formoter 100/5 MDI INH SCH ×3 (07:24→19:02)
[2021-08-28] MEDS: Polyethylene Glycol 3350 17 GM PACKET PO SCH (09:26)
[2021-08-28] MEDS: Insulin GLARGINE 100 un/ml 10 ml VIAL SUBCUT SCH (09:27)
[2021-08-28] MEDS: Enoxaparin 40 MG/0.4 ML SYR SUBCUT SCH (18:04)
[2021-08-29] MEDS: Mometasone/Formoter 100/5 MDI INH SCH ×2 (06:54→19:32)
[2021-08-29] MEDS: Insulin GLARGINE 100 un/ml 10 ml VIAL SUBCUT SCH (10:09)
[2021-08-29] MEDS: Polyethylene Glycol 3350 17 GM PACKET PO SCH (10:09)
[2021-08-29] MEDS: Enoxaparin 40 MG/0.4 ML SYR SUBCUT SCH (17:29)
[2021-08-30 06:54] LABS: ABS Eosinophils 0.1 10^3/ul (0-0.6); ABS Lymphocytes 1.3 10^3/ul (1.0-4.8); ABS Monocytes 0.7 10^3/ul (0-0.8); ABS Neutrophils 5.2 10^3/ul (1.5-7.7); Eosinophil % 1.5 %; Hematocrit 28 % (42-52); Hemoglobin 9.7 g/dL (14.0-18.0); Lymphocyte % 17.9 %; Mean Corpuscular HGB Conc 35 g/dL (31-36); Mean Corpuscular Hemoglobin 32 pg (27-31); Mean Corpuscular Volume 92 fL (80-94); Mean Platelet Volume 6.4 fL (7.4-10.4); Platelet Count 274 10^3/uL (150-450); Red Blood Count 3.06 10^6 /uL (4.18-5.48); Red Cell Distribution Width 18 % (10-15); White Blood Count 7.3 10^3/uL (3.5-10.8)
[2021-08-30] MEDS: Mometasone/Formoter 100/5 MDI INH SCH ×3 (07:22→19:27)
[2021-08-30] MEDS: Insulin GLARGINE 100 un/ml 10 ml VIAL SUBCUT SCH (10:53)
[2021-08-30] MEDS: Polyethylene Glycol 3350 17 GM PACKET PO SCH (10:55)
[2021-08-30] MEDS: Enoxaparin 40 MG/0.4 ML SYR SUBCUT SCH (17:21)
[2021-08-31] MEDS: Mometasone/Formoter 100/5 MDI INH SCH ×2 (07:27→19:05)
[2021-08-31] MEDS: Polyethylene Glycol 3350 17 GM PACKET PO SCH (10:44)
[2021-08-31] MEDS: Insulin GLARGINE 100 un/ml 10 ml VIAL SUBCUT SCH (10:56)
[2021-08-31] MEDS: Enoxaparin 40 MG/0.4 ML SYR SUBCUT SCH (17:15)
[2021-08-31] MEDS: Senna TAB 8.6 mg TAB PO PRN (20:33)
[2021-09-01] MEDS: Mometasone/Formoter 100/5 MDI INH SCH ×2 (07:08→19:36)
[2021-09-01] MEDS: Insulin GLARGINE 100 un/ml 10 ml VIAL SUBCUT SCH (08:46)
[2021-09-01] MEDS: Polyethylene Glycol 3350 17 GM PACKET PO SCH (10:28)
[2021-09-01] MEDS: Enoxaparin 40 MG/0.4 ML SYR SUBCUT SCH (17:40)
[2021-09-02] MEDS: Mometasone/Formoter 100/5 MDI INH SCH ×3 (07:01→19:05)
[2021-09-02] MEDS: Polyethylene Glycol 3350 17 GM PACKET PO SCH (07:51)
[2021-09-02] MEDS: Insulin GLARGINE 100 un/ml 10 ml VIAL SUBCUT SCH (09:23)
[2021-09-02] MEDS: Enoxaparin 40 MG/0.4 ML SYR SUBCUT SCH (18:18)
[2021-09-03] MEDS: Mometasone/Formoter 100/5 MDI INH SCH ×2 (07:23→20:09)
[2021-09-03] MEDS: Polyethylene Glycol 3350 17 GM PACKET PO SCH (08:23)
[2021-09-03] MEDS: Insulin GLARGINE 100 un/ml 10 ml VIAL SUBCUT SCH (08:23)
[2021-09-03] MEDS: Enoxaparin 40 MG/0.4 ML SYR SUBCUT SCH (17:25)
[2021-09-03] MEDS: Senna TAB 8.6 mg TAB PO PRN (23:27)
[2021-09-04] MEDS: Mometasone/Formoter 100/5 MDI INH SCH ×2 (08:02→19:37)
[2021-09-04] MEDS: Insulin GLARGINE 100 un/ml 10 ml VIAL SUBCUT SCH (08:06)
[2021-09-04] MEDS: Polyethylene Glycol 3350 17 GM PACKET PO SCH (08:06)
[2021-09-04] MEDS: Enoxaparin 40 MG/0.4 ML SYR SUBCUT SCH (16:41)
[2021-09-05] MEDS: Mometasone/Formoter 100/5 MDI INH SCH ×2 (08:11→19:46)
[2021-09-05] MEDS: Insulin GLARGINE 100 un/ml 10 ml VIAL SUBCUT SCH (08:59)
[2021-09-05] MEDS: Polyethylene Glycol 3350 17 GM PACKET PO SCH (09:03)
[2021-09-05] MEDS: Enoxaparin 40 MG/0.4 ML SYR SUBCUT SCH (17:30)
[2021-09-06 06:04] LABS: ABS Eosinophils 0.1 10^3/ul (0-0.6); ABS Lymphocytes 1.1 10^3/ul (1.0-4.8); ABS Monocytes 0.8 10^3/ul (0-0.8); ABS Neutrophils 6.4 10^3/ul (1.5-7.7); Eosinophil % 1.5 %; Hematocrit 29 % (42-52); Hemoglobin 10.1 g/dL (14.0-18.0); Lymphocyte % 13.1 %; Mean Corpuscular HGB Conc 35 g/dL (31-36); Mean Corpuscular Hemoglobin 32 pg (27-31); Mean Corpuscular Volume 92 fL (80-94); Nucleated Red Blood Cells % 0.1; Platelet Count 255 10^3/uL (150-450); Red Blood Count 3.18 10^6 /uL (4.18-5.48); Red Cell Distribution Width 18 % (10-15); White Blood Count 8.4 10^3/uL (3.5-10.8)
[2021-09-06 06:20] LABS: Calcium 9.1 mg/dL (8.6-10.3); Potassium 4.6 mmol/L (3.5-5.0); eGFR CKD-EPI 50.7 (>60)
[2021-09-06] MEDS: Mometasone/Formoter 100/5 MDI INH SCH ×2 (07:28→19:11)
[2021-09-06] MEDS: Polyethylene Glycol 3350 17 GM PACKET PO SCH (09:43)
[2021-09-06] MEDS: Insulin GLARGINE 100 un/ml 10 ml VIAL SUBCUT SCH (09:43)
[2021-09-06] MEDS: Enoxaparin 40 MG/0.4 ML SYR SUBCUT SCH (17:44)
[2021-09-07] MEDS: Mometasone/Formoter 100/5 MDI INH SCH ×2 (08:19→17:28)
[2021-09-07] MEDS ORDERED: Insulin GLARGINE 100 un/ml 10 ml VIAL SUBCUT SCH (09:00)
[2021-09-07] MEDS: Polyethylene Glycol 3350 17 GM PACKET PO SCH (11:02)
[2021-09-07] MEDS: Insulin GLARGINE 100 un/ml 10 ml VIAL SUBCUT SCH (11:40)
[2021-09-07] MEDS: Enoxaparin 40 MG/0.4 ML SYR SUBCUT SCH (16:52)
[2021-09-08] MEDS: Mometasone/Formoter 100/5 MDI INH SCH ×2 (06:38→20:50)
[2021-09-08] MEDS: Polyethylene Glycol 3350 17 GM PACKET PO SCH (09:05)
[2021-09-08] MEDS: Insulin GLARGINE 100 un/ml 10 ml VIAL SUBCUT SCH (09:09)
[2021-09-08] MEDS: Enoxaparin 40 MG/0.4 ML SYR SUBCUT SCH (18:00)
[2021-09-09] MEDS: Mometasone/Formoter 100/5 MDI INH SCH ×2 (06:47→21:29)
[2021-09-09] MEDS: Polyethylene Glycol 3350 17 GM PACKET PO SCH (08:21)
[2021-09-09] MEDS: Insulin GLARGINE 100 un/ml 10 ml VIAL SUBCUT SCH (08:23)
[2021-09-09] MEDS: Enoxaparin 40 MG/0.4 ML SYR SUBCUT SCH (17:22)
[2021-09-10] MEDS: Mometasone/Formoter 100/5 MDI INH SCH ×2 (06:58→20:12)
[2021-09-10] MEDS: Insulin GLARGINE 100 un/ml 10 ml VIAL SUBCUT SCH (10:26)
[2021-09-10] MEDS: Polyethylene Glycol 3350 17 GM PACKET PO SCH (10:27)
[2021-09-10] MEDS: Enoxaparin 40 MG/0.4 ML SYR SUBCUT SCH (17:15)
[2021-09-11] MEDS: Mometasone/Formoter 100/5 MDI INH SCH ×2 (07:39→18:29)
[2021-09-11] MEDS: Insulin GLARGINE 100 un/ml 10 ml VIAL SUBCUT SCH (08:53)
[2021-09-11] MEDS: Polyethylene Glycol 3350 17 GM PACKET PO SCH (08:54)
[2021-09-11] MEDS: Enoxaparin 40 MG/0.4 ML SYR SUBCUT SCH (20:57)
[2021-09-12] MEDS: Mometasone/Formoter 100/5 MDI INH SCH ×2 (07:56→19:20)
[2021-09-12] MEDS: Insulin GLARGINE 100 un/ml 10 ml VIAL SUBCUT SCH (08:57)
[2021-09-12] MEDS: Polyethylene Glycol 3350 17 GM PACKET PO SCH (08:57)
[2021-09-12] MEDS ORDERED: COVID-19 VACCINE, MRNA(MODERNA) BOOSTER/PF 50 MCG/0.25 ML IM ONE (11:00)
[2021-09-12] MEDS: Enoxaparin 40 MG/0.4 ML SYR SUBCUT SCH (16:48)
[2021-09-13 06:13] LABS: ABS Eosinophils 0.2 10^3/ul (0-0.6); ABS Lymphocytes 1.2 10^3/ul (1.0-4.8); ABS Monocytes 0.8 10^3/ul (0-0.8); ABS Neutrophils 5.9 10^3/ul (1.5-7.7); Eosinophil % 2.7 %; Hematocrit 28 % (42-52); Hemoglobin 9.5 g/dL (14.0-18.0); Lymphocyte % 15.3 %; Mean Corpuscular HGB Conc 34 g/dL (31-36); Mean Corpuscular Hemoglobin 31 pg (27-31); Mean Corpuscular Volume 92 fL (80-94); Mean Platelet Volume 6.3 fL (7.4-10.4); Platelet Count 288 10^3/uL (150-450); Red Blood Count 3.05 10^6 /uL (4.18-5.48); Red Cell Distribution Width 17 % (10-15); White Blood Count 8.2 10^3/uL (3.5-10.8)
[2021-09-13 06:30] LABS: Calcium 9.1 mg/dL (8.6-10.3); Magnesium 1.8 mg/dL (1.9-2.7); Potassium 4.3 mmol/L (3.5-5.0); eGFR CKD-EPI 52.6 (>60)
[2021-09-13] MEDS: Mometasone/Formoter 100/5 MDI INH SCH ×2 (07:14→20:23)
[2021-09-13] MEDS: Insulin GLARGINE 100 un/ml 10 ml VIAL SUBCUT SCH (07:35)
[2021-09-13] MEDS: Polyethylene Glycol 3350 17 GM PACKET PO SCH (07:35)
[2021-09-13] MEDS: Enoxaparin 40 MG/0.4 ML SYR SUBCUT SCH (16:44)
[2021-09-14] MEDS: Mometasone/Formoter 100/5 MDI INH SCH ×2 (07:32→19:56)
[2021-09-14] MEDS: Insulin GLARGINE 100 un/ml 10 ml VIAL SUBCUT SCH (10:15)
[2021-09-14] MEDS: Polyethylene Glycol 3350 17 GM PACKET PO SCH (10:18)
[2021-09-14] MEDS ORDERED: COVID-19 VACCINE, MRNA(MODERNA)/PF 100 MCG/0.5 ML IM ONE (14:30)
[2021-09-14] MEDS: Enoxaparin 40 MG/0.4 ML SYR SUBCUT SCH (18:34)
[2021-09-14] MEDS: Senna TAB 8.6 mg TAB PO PRN (22:04)
[2021-09-15] MEDS: Mometasone/Formoter 100/5 MDI INH SCH ×2 (08:00→19:59)
[2021-09-15] MEDS: Insulin GLARGINE 100 un/ml 10 ml VIAL SUBCUT SCH (08:26)
[2021-09-15] MEDS: Polyethylene Glycol 3350 17 GM PACKET PO SCH (08:26)
[2021-09-15] MEDS: Enoxaparin 40 MG/0.4 ML SYR SUBCUT SCH (17:34)
[2021-09-15] MEDS: Senna TAB 8.6 mg TAB PO PRN (23:30)
[2021-09-16] MEDS: Mometasone/Formoter 100/5 MDI INH SCH ×2 (06:51→20:03)
[2021-09-16] MEDS: Insulin GLARGINE 100 un/ml 10 ml VIAL SUBCUT SCH (08:07)
[2021-09-16] MEDS: Polyethylene Glycol 3350 17 GM PACKET PO SCH (08:08)
[2021-09-16] MEDS: Enoxaparin 40 MG/0.4 ML SYR SUBCUT SCH (17:08)
[2021-09-16] MEDS: Senna TAB 8.6 mg TAB PO PRN (20:43)
[2021-09-17] MEDS: Mometasone/Formoter 100/5 MDI INH SCH ×2 (07:18→19:14)
[2021-09-17] MEDS: Polyethylene Glycol 3350 17 GM PACKET PO SCH (10:10)
[2021-09-17] MEDS: Insulin GLARGINE 100 un/ml 10 ml VIAL SUBCUT SCH (10:22)
[2021-09-17] MEDS: Enoxaparin 40 MG/0.4 ML SYR SUBCUT SCH (18:21)
[2021-09-18] MEDS: Mometasone/Formoter 100/5 MDI INH SCH ×2 (07:09→20:12)
[2021-09-18] MEDS: Insulin GLARGINE 100 un/ml 10 ml VIAL SUBCUT SCH (08:19)
[2021-09-18] MEDS: Polyethylene Glycol 3350 17 GM PACKET PO SCH (08:21)
[2021-09-18] MEDS: Enoxaparin 40 MG/0.4 ML SYR SUBCUT SCH (18:19)
[2021-09-19 05:36] LABS: ABS Eosinophils 0.2 10^3/ul (0-0.6); ABS Lymphocytes 1.2 10^3/ul (1.0-4.8); ABS Monocytes 0.6 10^3/ul (0-0.8); ABS Neutrophils 4.7 10^3/ul (1.5-7.7); Eosinophil % 2.6 %; Hematocrit 29 % (42-52); Hemoglobin 9.8 g/dL (14.0-18.0); Lymphocyte % 17.7 %; Mean Corpuscular HGB Conc 35 g/dL (31-36); Mean Corpuscular Hemoglobin 31 pg (27-31); Mean Corpuscular Volume 90 fL (80-94); Mean Platelet Volume 5.9 fL (7.4-10.4); Platelet Count 291 10^3/uL (150-450); Red Blood Count 3.16 10^6 /uL (4.18-5.48); Red Cell Distribution Width 16 % (10-15); White Blood Count 6.7 10^3/uL (3.5-10.8)
[2021-09-19 06:03] LABS: Potassium 4.4 mmol/L (3.5-5.0); eGFR CKD-EPI 49.4 (>60)
[2021-09-19] MEDS: Mometasone/Formoter 100/5 MDI INH SCH ×2 (06:59→19:48)
[2021-09-19] MEDS: Insulin GLARGINE 100 un/ml 10 ml VIAL SUBCUT SCH (08:22)
[2021-09-19] MEDS: Polyethylene Glycol 3350 17 GM PACKET PO SCH (08:23)
[2021-09-19] MEDS: Enoxaparin 40 MG/0.4 ML SYR SUBCUT SCH (17:30)
[2021-09-20 05:14] LABS: Calcium 8.7 mg/dL (8.6-10.3); Magnesium 1.6 mg/dL (1.9-2.7); Potassium 4.4 mmol/L (3.5-5.0); eGFR CKD-EPI 37.9 (>60)
[2021-09-20] MEDS: Mometasone/Formoter 100/5 MDI INH SCH ×2 (07:14→19:29)
[2021-09-20] MEDS ORDERED: Magnesium Sulfate 2 gm BAG 2 GM/50 ML BAG IVPB ONE (07:20)
[2021-09-20] MEDS: Insulin GLARGINE 100 un/ml 10 ml VIAL SUBCUT SCH (08:35)
[2021-09-20] MEDS: Polyethylene Glycol 3350 17 GM PACKET PO SCH (08:36)
[2021-09-20] MEDS ORDERED: COVID-19 VACCINE, MRNA(MODERNA) BOOSTER/PF 50 MCG/0.25 ML IM ONE (12:00)
[2021-09-20] MEDS: Enoxaparin 30 MG/0.3 ML SYR SUBCUT SCH (19:16)
[2021-09-21] MEDS: Mometasone/Formoter 100/5 MDI INH SCH ×2 (06:57→18:54)
[2021-09-21 08:39] LABS: Calcium 8.9 mg/dL (8.6-10.3); Potassium 4.8 mmol/L (3.5-5.0); eGFR CKD-EPI 40.7 (>60)
[2021-09-21] MEDS: Insulin GLARGINE 100 un/ml 10 ml VIAL SUBCUT SCH (09:02)
[2021-09-21] MEDS: Polyethylene Glycol 3350 17 GM PACKET PO SCH (09:02)
[2021-09-21] MEDS: Enoxaparin 30 MG/0.3 ML SYR SUBCUT SCH (19:31)
[2021-09-21] MEDS: Senna TAB 8.6 mg TAB PO PRN (19:32)
[2021-09-22] MEDS: Mometasone/Formoter 100/5 MDI INH SCH ×2 (07:58→20:07)
[2021-09-22] MEDS: Insulin GLARGINE 100 un/ml 10 ml VIAL SUBCUT SCH (10:12)
[2021-09-22] MEDS: Polyethylene Glycol 3350 17 GM PACKET PO SCH (10:18)
[2021-09-22] MEDS: Enoxaparin 30 MG/0.3 ML SYR SUBCUT SCH (16:37)
[2021-09-22] MEDS: Senna TAB 8.6 mg TAB PO PRN (19:22)
[2021-09-23] MEDS: Polyethylene Glycol 3350 17 GM PACKET PO SCH (08:01)
[2021-09-23] MEDS: Mometasone/Formoter 100/5 MDI INH SCH (08:03)
[2021-09-23] MEDS: Insulin GLARGINE 100 un/ml 10 ml VIAL SUBCUT SCH (09:45)
[2021-09-23] MEDS: Enoxaparin 30 MG/0.3 ML SYR SUBCUT SCH (16:56)
[2021-09-24] MEDS: Insulin GLARGINE 100 un/ml 10 ml VIAL SUBCUT SCH (09:09)
[2021-09-24] MEDS: Polyethylene Glycol 3350 17 GM PACKET PO SCH (09:11)
[2021-09-24] MEDS: Enoxaparin 30 MG/0.3 ML SYR SUBCUT SCH (17:20)
[2021-09-25] MEDS: Insulin GLARGINE 100 un/ml 10 ml VIAL SUBCUT SCH (08:47)
[2021-09-25] MEDS: Polyethylene Glycol 3350 17 GM PACKET PO SCH (08:47)
[2021-09-25] MEDS: Enoxaparin 30 MG/0.3 ML SYR SUBCUT SCH (16:54)
[2021-09-26 05:05] LABS: ABS Eosinophils 0.2 10^3/ul (0-0.6); ABS Lymphocytes 1.5 10^3/ul (1.0-4.8); ABS Monocytes 1.1 10^3/ul (0-0.8); ABS Neutrophils 7.6 10^3/ul (1.5-7.7); Eosinophil % 2.1 %; Hematocrit 27 % (42-52); Hemoglobin 9.4 g/dL (14.0-18.0); Lymphocyte % 14.3 %; Mean Corpuscular HGB Conc 35 g/dL (31-36); Mean Corpuscular Hemoglobin 32 pg (27-31); Mean Corpuscular Volume 92 fL (80-94); Mean Platelet Volume 6.2 fL (7.4-10.4); Platelet Count 304 10^3/uL (150-450); Red Blood Count 2.96 10^6 /uL (4.18-5.48); Red Cell Distribution Width 16 % (10-15); White Blood Count 10.5 10^3/uL (3.5-10.8)
[2021-09-26 05:23] LABS: Calcium 9.2 mg/dL (8.6-10.3); Magnesium 1.9 mg/dL (1.9-2.7); Potassium 4.5 mmol/L (3.5-5.0)
[2021-09-26] MEDS: Polyethylene Glycol 3350 17 GM PACKET PO SCH (07:23)
[2021-09-26] MEDS: Insulin GLARGINE 100 un/ml 10 ml VIAL SUBCUT SCH (09:25)
[2021-09-26] MEDS: Enoxaparin 30 MG/0.3 ML SYR SUBCUT SCH (17:14)
[2021-09-26] MEDS: Senna TAB 8.6 mg TAB PO PRN (20:44)
[2021-09-27] MEDS: Insulin GLARGINE 100 un/ml 10 ml VIAL SUBCUT SCH (09:00)
[2021-09-27] MEDS: Polyethylene Glycol 3350 17 GM PACKET PO SCH (10:12)
[2021-09-27] MEDS: Enoxaparin 30 MG/0.3 ML SYR SUBCUT SCH (17:15)
[2021-09-27] MEDS: Senna TAB 8.6 mg TAB PO PRN (21:28)
[2021-09-28] MEDS: Insulin GLARGINE 100 un/ml 10 ml VIAL SUBCUT SCH (09:39)
[2021-09-28] MEDS: Polyethylene Glycol 3350 17 GM PACKET PO SCH (09:39)
[2021-09-28] MEDS: Enoxaparin 30 MG/0.3 ML SYR SUBCUT SCH (17:25)
[2021-09-29 05:50] LABS: Hematocrit 27 % (42-52); Hemoglobin 9.1 g/dL (14.0-18.0); Mean Corpuscular HGB Conc 34 g/dL (31-36); Mean Corpuscular Hemoglobin 31 pg (27-31); Mean Corpuscular Volume 93 fL (80-94); Mean Platelet Volume 6.4 fL (7.4-10.4); Platelet Count 286 10^3/uL (150-450); Red Blood Count 2.92 10^6 /uL (4.18-5.48); Red Cell Distribution Width 16 % (10-15); White Blood Count 8.1 10^3/uL (3.5-10.8)
[2021-09-29] MEDS: Insulin GLARGINE 100 un/ml 10 ml VIAL SUBCUT SCH (08:13)
[2021-09-29] MEDS: Polyethylene Glycol 3350 17 GM PACKET PO SCH (08:15)
[2021-09-29] MEDS: Enoxaparin 30 MG/0.3 ML SYR SUBCUT SCH (17:37)
[2021-09-30] MEDS: Polyethylene Glycol 3350 17 GM PACKET PO SCH (07:48)
[2021-09-30 08:37] LABS: Potassium 4.8 mmol/L (3.5-5.0); eGFR CKD-EPI 41.2 (>60)
[2021-09-30] MEDS: Insulin GLARGINE 100 un/ml 10 ml VIAL SUBCUT SCH (08:45)
[2021-09-30 09:53] LABS: Calcium 8.7 mg/dL (8.6-10.3)
[2021-09-30] MEDS: Enoxaparin 30 MG/0.3 ML SYR SUBCUT SCH (17:22)
[2021-10-01] MEDS: Insulin GLARGINE 100 un/ml 10 ml VIAL SUBCUT SCH (08:48)
[2021-10-01] MEDS: Polyethylene Glycol 3350 17 GM PACKET PO SCH (08:51)
[2021-10-01] MEDS: Enoxaparin 30 MG/0.3 ML SYR SUBCUT SCH (17:30)
[2021-10-01] MEDS: Senna TAB 8.6 mg TAB PO PRN (19:55)
[2021-10-02] MEDS: Insulin GLARGINE 100 un/ml 10 ml VIAL SUBCUT SCH (07:38)
[2021-10-02] MEDS: Polyethylene Glycol 3350 17 GM PACKET PO SCH (07:38)
[2021-10-02] MEDS: Enoxaparin 30 MG/0.3 ML SYR SUBCUT SCH (19:59)
[2021-10-03] MEDS: Insulin GLARGINE 100 un/ml 10 ml VIAL SUBCUT SCH (08:34)
[2021-10-03] MEDS: Polyethylene Glycol 3350 17 GM PACKET PO SCH (08:35)
[2021-10-03] MEDS: Enoxaparin 30 MG/0.3 ML SYR SUBCUT SCH (18:13)
[2021-10-04 06:45] LABS: ABS Eosinophils 0.1 10^3/ul (0-0.6); ABS Lymphocytes 1.1 10^3/ul (1.0-4.8); ABS Monocytes 0.7 10^3/ul (0-0.8); Eosinophil % 1.8 %; Hematocrit 30 % (42-52); Hemoglobin 10.1 g/dL (14.0-18.0); Lymphocyte % 16.2 %; Mean Corpuscular HGB Conc 34 g/dL (31-36); Mean Corpuscular Hemoglobin 32 pg (27-31); Mean Corpuscular Volume 94 fL (80-94); Mean Platelet Volume 6.3 fL (7.4-10.4); Platelet Count 274 10^3/uL (150-450); Red Blood Count 3.18 10^6 /uL (4.18-5.48); Red Cell Distribution Width 16 % (10-15)
[2021-10-04 07:20] LABS: Calcium 9.3 mg/dL (8.6-10.3); Magnesium 2.2 mg/dL (1.9-2.7); Potassium 4.5 mmol/L (3.5-5.0)
[2021-10-04] MEDS: Polyethylene Glycol 3350 17 GM PACKET PO SCH (08:02)
[2021-10-04] MEDS: Insulin GLARGINE 100 un/ml 10 ml VIAL SUBCUT SCH (08:02)
[2021-10-04] MEDS: Enoxaparin 30 MG/0.3 ML SYR SUBCUT SCH (17:02)
[2021-10-05] MEDS: Insulin GLARGINE 100 un/ml 10 ml VIAL SUBCUT SCH (08:58)
[2021-10-05] MEDS: Polyethylene Glycol 3350 17 GM PACKET PO SCH (08:59)
[2021-10-05] MEDS: Enoxaparin 30 MG/0.3 ML SYR SUBCUT SCH (17:45)
[2021-10-06] MEDS: Insulin GLARGINE 100 un/ml 10 ml VIAL SUBCUT SCH (07:48)
[2021-10-06] MEDS: Polyethylene Glycol 3350 17 GM PACKET PO SCH (07:48)
[2021-10-06] MEDS: Enoxaparin 30 MG/0.3 ML SYR SUBCUT SCH (16:59)
[2021-10-07] MEDS: Polyethylene Glycol 3350 17 GM PACKET PO SCH (08:55)
[2021-10-07] MEDS: Insulin GLARGINE 100 un/ml 10 ml VIAL SUBCUT SCH (09:00)
[2021-10-07] MEDS: Enoxaparin 30 MG/0.3 ML SYR SUBCUT SCH (17:21)
[2021-10-08] MEDS: Insulin GLARGINE 100 un/ml 10 ml VIAL SUBCUT SCH (09:27)
[2021-10-08] MEDS: Polyethylene Glycol 3350 17 GM PACKET PO SCH (09:33)
[2021-10-08] MEDS: Enoxaparin 30 MG/0.3 ML SYR SUBCUT SCH (17:43)
[2021-10-09] MEDS: Insulin GLARGINE 100 un/ml 10 ml VIAL SUBCUT SCH (08:39)
[2021-10-09] MEDS: Polyethylene Glycol 3350 17 GM PACKET PO SCH (08:40)
[2021-10-09] MEDS: Enoxaparin 30 MG/0.3 ML SYR SUBCUT SCH (18:02)
[2021-10-10 07:35] VITALS: BP 130/61
[2021-10-10] MEDS: Insulin GLARGINE 100 un/ml 10 ml VIAL SUBCUT SCH (08:51)
[2021-10-10] MEDS: Polyethylene Glycol 3350 17 GM PACKET PO SCH (08:55)
== END 2021-10-10 10:30 | disposition home or self-care (01) | DRG 699 ==
LOC: SUATTDRO 16:16 → MED 16:16
PROVIDERS: ADMIT Physician Assistant; ATTEND Internal Medicine

== ENCOUNTER 2021-10-17 10:50 | Observation (INO) ==
[2021-10-17 11:57] LABS: ABS Eosinophils 0.1 10^3/ul (0-0.6); ABS Monocytes 0.6 10^3/ul (0-0.8); ABS Neutrophils 7.6 10^3/ul (1.5-7.7); Eosinophil % 1.3 %; Hematocrit 32 % (42-52); Lymphocyte % 10.4 %; Mean Corpuscular HGB Conc 34 g/dL (31-36); Mean Corpuscular Hemoglobin 32 pg (27-31); Mean Corpuscular Volume 94 fL (80-94); Mean Platelet Volume 7.2 fL (7.4-10.4); Platelet Count 330 10^3/uL (150-450); Red Blood Count 3.43 10^6 /uL (4.18-5.48); Red Cell Distribution Width 15 % (10-15); White Blood Count 9.3 10^3/uL (3.5-10.8)
[2021-10-17 12:16] LABS: Activated Partial Thrombo Time 24.7 seconds (26.0-38.0); INR 1.04 (0.86-1.15)
[2021-10-17 12:19] LABS: High Sens Troponin Baseline 41 pg/mL (<20)
[2021-10-17 12:37] LABS: ALT 11 U/L (7-52); Albumin 3.6 g/dL (3.2-5.2); Albumin/Globulin Ratio 1.3 (1-3); Alkaline Phosphatase 55 U/L (35-149); Blood Urea Nitrogen 39 mg/dL (6-24); CO2 Carbon Dioxide 26 mmol/L (22-32); Calcium 9.1 mg/dL (8.6-10.3); Chloride 99 mmol/L (101-111); Globulin 2.8 g/dL (2-4); Glucose 376 mg/dL (70-100); Sodium 131 mmol/L (135-145); Total Protein 6.4 g/dL (6.4-8.9); eGFR CKD-EPI 46.7 (>60)
[2021-10-17 13:30] LABS: High Sensitivity Troponin 1 Hr 39 pg/mL (<20)
[2021-10-17 13:51] LABS: Anion Gap 6 mmol/L (2-11)
[2021-10-17 14:48] LABS: Urine Appearance Cloudy; Urine Bilirubin Negative (Negative); Urine Blood 2+ (Negative); Urine Color Yellow; Urine Glucose 3+(>=500 mg/dL) (Negative); Urine Ketones Negative (Negative); Urine Nitrite Positive (Negative); Urine Protein Negative (Negative); Urine Specific Gravity 1.011 (1.002-1.030); Urine Urobilinogen Negative (Negative)
[2021-10-17 14:51] LABS: Urine Bacteria 1+ (Absent); Urine Red Blood Cell 3+(>10/hpf) (Absent); Urine Squamous Epithelial Cell Present (Absent); Urine White Blood Cell 3+(>20/hpf) (Absent); Urine Yeast Present (Absent)
[2021-10-17 15:48] LABS: Magnesium 1.4 mg/dL (1.9-2.7); Potassium Redraw 4.6 mmol/L (3.5-5.0)
[2021-10-17] MEDS ORDERED: Magnesium Sulf 4 GM/100 ML IV 4,000 MG/100 ML BAG IVPB ONE (15:56)
[2021-10-17] MEDS ORDERED: Albuterol HFA INHALER 8 gm MDI INH PRN (15:59)
[2021-10-17] MEDS ORDERED: Dextrose 50% Syringe 50 ml 25 GM/50 ML SYRINGE IV PUSH PRN (18:19)
[2021-10-17] MEDS ORDERED: Enoxaparin 40 MG/0.4 ML SYR SUBCUT SCH (20:00)
[2021-10-18 06:04] LABS: C Reactive Protein 7.81 mg/L (<8.01); Calcium 9.1 mg/dL (8.6-10.3); Magnesium 2.1 mg/dL (1.9-2.7); Potassium 4.1 mmol/L (3.5-5.0); eGFR CKD-EPI 47.8 (>60)
[2021-10-18] MEDS ORDERED: Regadenoson 0.4 MG/5 ML SYRINGE ONE ×2 (07:29→13:50)
[2021-10-18] MEDS ORDERED: Aminophylline 25 MG/ML VIAL ONE (07:29)
[2021-10-18] MEDS ORDERED: Polyethylene Glycol 3350 17 GM PACKET PO SCH (09:00)
[2021-10-18] MEDS ORDERED: Aspirin EC 81 mg TAB.EC (enteric coated) PO SCH (09:00)
[2021-10-18] MEDS ORDERED: Metoprolol Tartrate 5 mg VIAL 5 ml VIAL (1 mg/ml) IV ONE (16:42)
[2021-10-18 20:24] VITALS: BP 121/69
== END 2021-10-18 18:33 | disposition home or self-care (01) ==
LOC: EDHOLD 10:50 → ED 10:50 → MEDTELE 21:51
PROVIDERS: ADMIT Internal Medicine; ATTEND Internal Medicine

== ENCOUNTER 2022-07-29 18:22 | Observation (INO) ==
[2022-07-29 19:07] LABS: ABS Basophils 0.1 10^3/ul (0-0.2); ABS Eosinophils 0.1 10^3/ul (0-0.6); ABS Lymphocytes 1.2 10^3/ul (1.0-4.8); ABS Monocytes 0.7 10^3/ul (0-0.8); ABS Neutrophils 4.5 10^3/ul (1.5-7.7); Hematocrit 31 % (42-52); Hemoglobin 10.5 g/dL (14.0-18.0); Lymphocyte % 18.2 %; Mean Corpuscular Hemoglobin 33 pg (27-31); Mean Corpuscular Hgb Conc 34 g/dL (31-36); Mean Corpuscular Volume 98 fL (80-94); Mean Platelet Volume 6.8 fL (7.4-10.4); Platelet Count 294 10^3/uL (150-450); Red Blood Count 3.16 10^6 /uL (4.18-5.48); Red Cell Distribution Width 14 % (10-15); White Blood Count 6.6 10^3/uL (3.5-10.8)
[2022-07-29 19:11] LABS: Venous Bicarbonate HCO3 12.3 mmol/L (24-28)
[2022-07-29 19:52] LABS: Albumin 3.9 g/dL (3.2-5.2); Calcium 8.3 mg/dL (8.6-10.3); Creatinine, Serum 1.15 mg/dL (0.67-1.17); Total Bilirubin 0.3 mg/dL (0.2-1.0); Total Protein 5.9 g/dL (6.4-8.9); eGFR CKD-EPI 62.8 (>60)
[2022-07-29 20:20] LABS: Urine Appearance Clear; Urine Bilirubin Negative (Negative); Urine Blood Negative (Negative); Urine Color Straw; Urine Glucose 3+(>=500 mg/dL) (Negative); Urine Ketones Negative (Negative); Urine Nitrite Negative (Negative); Urine Protein Negative (Negative); Urine Urobilinogen Negative (Negative)
[2022-07-29] MEDS ORDERED: Lactated Ringers 1000 ml BAG 1,000 ML IV ONE (20:34)
[2022-07-29 21:03] LABS: Potassium 4.3 mmol/L (3.5-5.0)
[2022-07-29] MEDS ORDERED: Magnesium Hydroxide LIQ 30 ML UDC PO PRN (22:45)
[2022-07-29] MEDS ORDERED: Polyethylene Glycol 3350 17 GM PACKET PO PRN (22:45)
[2022-07-29] MEDS ORDERED: Senna TAB 8.6 mg TAB PO PRN (22:45)
[2022-07-29] MEDS ORDERED: Albuterol HFA INHALER 8 gm MDI INH PRN (22:50)
[2022-07-29] MEDS ORDERED: Dextrose 50% Syringe 50 ml 25 GM/50 ML SYRINGE IV PUSH PRN (22:54)
[2022-07-30] MEDS: Enoxaparin 40 MG/0.4 ML SYR SUBCUT SCH ×2 (00:38→20:30)
[2022-07-30] MEDS: Insulin GLARGINE 100 un/ml 10 ml VIAL SUBCUT SCH ×2 (00:52→09:01)
[2022-07-30] MEDS: Nicotine PATCH 21 MG/24 HR PATCH TRANSDERM SCH ×2 (00:52→09:01)
[2022-07-30] MEDS: Lactated Ringers 1000 ml BAG 1,000 ML IV SCH ×2 (01:11→12:55)
[2022-07-30 06:27] LABS: ABS Eosinophils 0.1 10^3/ul (0-0.6); ABS Lymphocytes 1.2 10^3/ul (1.0-4.8); ABS Monocytes 0.7 10^3/ul (0-0.8); ABS Neutrophils 3.8 10^3/ul (1.5-7.7); Eosinophil % 1.7 %; Hematocrit 27 % (42-52); Hemoglobin 9.6 g/dL (14.0-18.0); Lymphocyte % 20.7 %; Mean Corpuscular Hemoglobin 34 pg (27-31); Mean Corpuscular Hgb Conc 36 g/dL (31-36); Mean Corpuscular Volume 96 fL (80-94); Mean Platelet Volume 6.8 fL (7.4-10.4); Platelet Count 264 10^3/uL (150-450); Red Blood Count 2.79 10^6 /uL (4.18-5.48); Red Cell Distribution Width 14 % (10-15); White Blood Count 5.9 10^3/uL (3.5-10.8)
[2022-07-30 06:29] LABS: Urine Appearance Clear; Urine Bilirubin Negative (Negative); Urine Blood Negative (Negative); Urine Color Straw; Urine Glucose 3+(>=500 mg/dL) (Negative); Urine Ketones Negative (Negative); Urine Nitrite Negative (Negative); Urine Protein Negative (Negative); Urine Specific Gravity 1.011 (1.002-1.030); Urine Urobilinogen Negative (Negative)
[2022-07-30 06:41] LABS: Ferritin 289.3 ng/mL (24-336)
[2022-07-30 06:45] LABS: Folate 7.91 ng/mL (5.90-24.80)
[2022-07-30 07:00] LABS: Calcium 8.5 mg/dL (8.6-10.3); Creatinine, Serum 0.96 mg/dL (0.67-1.17); Potassium 3.7 mmol/L (3.5-5.0); eGFR CKD-EPI 77.9 (>60)
[2022-07-30] MEDS ORDERED: Nicotine GUM 4MG FRUIT FLAVOR PO PRN (13:57)
[2022-07-30] MEDS ORDERED: Potassium Chlor 20 meq TAB.ER PO ONE (19:43)
[2022-07-31] MEDS: Nicotine PATCH 21 MG/24 HR PATCH TRANSDERM SCH (08:27)
[2022-07-31] MEDS: Insulin GLARGINE 100 un/ml 10 ml VIAL SUBCUT SCH (08:27)
[2022-07-31] MEDS ORDERED: Insulin GLARGINE 100 un/ml 10 ml VIAL SUBCUT ONE (09:13)
[2022-07-31 15:48] VITALS: BP 112/69
[2022-08-01] MEDS ORDERED: Insulin GLARGINE 100 un/ml 10 ml VIAL SUBCUT SCH ×2 (09:00)
== END 2022-07-31 14:47 | disposition swing bed (61) ==
LOC: ED 18:22 → EDHOLD 18:22 → SUATTDRO 22:45 → MED 07-30 16:09
PROVIDERS: ADMIT Hospitalist; ATTEND Student in an Organized Health Care Education/Training Program